=== PATIENT | male | born 2000 | race Caucasian/White ===

== ENCOUNTER 2021-12-24 12:24 | Emergency (ER) | payer OTHER ==
[~2021-12-24] VITALS: Ht 172.7 cm; Wt 115.5 kg
[2021-12-24 13:21] LABS: BASOPHILS % (AUTO) 0.2 % (0.0-2.0); EOSINOPHILS % (AUTO) 0 % (1.0-6.0); HEMATOCRIT 42.8 % (41-53); HEMOGLOBIN 14.4 g/dL (13.5-17.5); LYMPHOCYTES # (AUTO) 1.5 K/uL (1.0-4.8); LYMPHOCYTES % (AUTO) 11.3 % (22.0-44.0); MEAN CORPUSCULAR HEMOGLOBIN 28.9 pg (26.0-34.0); MEAN CORPUSCULAR HGB CONC 33.5 G/dL (31.0-37.0); MEAN CORPUSCULAR VOLUME 86 fL (80-100); MONOCYTES # (AUTO) 1.3 K/uL (0.1-1.0); MONOCYTES % (AUTO) 9.5 % (2.0-9.0); NEUTROPHILS # (AUTO) 10.7 K/uL (1.8-7.7); PLATELET COUNT (AUTO) 257 K/uL (150-450); RED BLOOD CELL COUNT(AUTO) 4.97 MIL/uL (4.50-5.90); RED CELL DISTRIBUTION WIDTH 13.8 % (11.5-14.5)
[2021-12-24 13:33] LABS: ANION GAP 9 mmol/L (8-16); CALCIUM, TOTAL 8.9 mg/dL (8.8-10.5); CARBON DIOXIDE 25 mmol/L (22-29); CHLORIDE 106 mmol/L (98-107); CREATININE 1.11 mg/dL (0.60-1.30); GLUCOSE,RANDOM 141 mg/dL (70-110); POTASSIUM 4.3 mmol/L (3.5-5.1); SODIUM SERUM 140 mmol/L (136-145); UREA NITROGEN, BLOOD 19 mg/dL (7-18)
[2021-12-24 13:39] LABS: ALANINE AMINOTRANSFERASE 240 U/L (12-78); ALBUMIN 4.3 g/dL (3.4-5.0); ALKALINE PHOSPHATASE 79 U/L (46-116); ASPARTATE AMINOTRANSFERASE 165 U/L (15-37); BILIRUBIN,TOTAL 0.9 mg/dL (0.1-1.0); TOTAL PROTEIN, SERUM 7.6 g/dL (6.4-8.2)
[2021-12-24 13:40] LABS: GLOMERULAR FILTR. RATE CALC > 60 mL/min (>60)
[2021-12-24] MEDS ORDERED: SODIUM CHLORIDE 0.9% 100 ML ONE (14:30)
[2021-12-24] MEDS ORDERED: IOHEXOL 300 MG/ML 100 ML VIAL ONE (14:30)
[2021-12-24 14:45] VITALS: BP 120/74
[2021-12-24] MEDS ORDERED: BACITRACIN 0.9 GM PACKET OINTMENT TP ONE (17:00)
[2021-12-24] MEDS ORDERED: CEPH-558 PO (17:10)
== END 2021-12-24 17:31 | disposition home or self-care (01) ==
LOC: EMS 12:24
DX: S02.2XXA Fracture of nasal bones, initial encounter for closed fracture (principal); S27.322A Contusion of lung, bilateral, initial encounter; S00.212A Abrasion of left eyelid and periocular area, initial encounter; F10.20 Alcohol dependence, uncomplicated; F17.210 Nicotine dependence, cigarettes, uncomplicated; V03.99XA Pedestrian with other conveyance injured in collision with car, pick-up truck or van, unspecified whether traffic or nontraffic accident, initial encounter; Y93.89 Activity, other specified; Y92.89 Other specified places as the place of occurrence of the external cause; Y99.8 Other external cause status
CPT/HCPCS: 99285; 70450; 80053; 85025; 36415; 73562; 73610; 70486; 71260; 72125; 74177; J7050; Q9967; 72193; 74160; 93005

== ENCOUNTER 2022-01-03 19:06 | Emergency (ER) | payer OTHER ==
[~2022-01-03] VITALS: Ht 175.3 cm; Wt 250.0 kg
[~2022-01-03 19:06] MED LIST: CEPH-558 PO
[2022-01-03 22:13] VITALS: BP 142/68
== END 2022-01-03 22:14 | disposition home or self-care (01) ==
LOC: EMS 19:10
DX: S70.11XA Contusion of right thigh, initial encounter (principal); S20.219A Contusion of unspecified front wall of thorax, initial encounter; F10.20 Alcohol dependence, uncomplicated; F17.210 Nicotine dependence, cigarettes, uncomplicated; V89.2XXA Person injured in unspecified motor-vehicle accident, traffic, initial encounter; Y93.89 Activity, other specified; Y92.89 Other specified places as the place of occurrence of the external cause; Y99.8 Other external cause status; Z48.02 Encounter for removal of sutures
CPT/HCPCS: 71045; 72170; 73552; 99284

== ENCOUNTER 2022-01-22 12:25 | Emergency (ER) | payer OTHER ==
[~2022-01-22] VITALS: Ht 172.7 cm; Wt 111.4 kg
[2022-01-22] MEDS ORDERED: CEPH-558 PO (15:39)
[2022-01-22 15:49] VITALS: BP 117/71
== END 2022-01-22 15:52 | disposition home or self-care (01) ==
LOC: EMS 12:25
DX: L08.9 Local infection of the skin and subcutaneous tissue, unspecified (principal); F17.210 Nicotine dependence, cigarettes, uncomplicated; Z98.890 Other specified postprocedural states
CPT/HCPCS: 99283; Z7502